=== PATIENT | female | born 1990 | race American Indian/Alaskan Native ===

== ENCOUNTER 2021-12-04 22:13 | Emergency (ER) | payer OTHER ==
[2021-12-04 23:27] VITALS: BP 154/95
[2021-12-05] MEDS ORDERED: ACETAMINOPHEN 500 MG TAB PO ONE (01:21)
[2021-12-05] MEDS ORDERED: IBUPROFEN 600 MG TAB PO ONE (01:21)
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
== END 2021-12-05 06:32 | disposition home or self-care (01) ==
LOC: ED 22:13
DX: S20.219A Contusion of unspecified front wall of thorax, initial encounter (principal); M62.830 Muscle spasm of back; M62.838 Other muscle spasm; E66.01 Morbid (severe) obesity due to excess calories; Z91.013 Allergy to seafood; V89.2XXA Person injured in unspecified motor-vehicle accident, traffic, initial encounter; Y93.89 Activity, other specified; Y92.89 Other specified places as the place of occurrence of the external cause; Y99.8 Other external cause status
CPT/HCPCS: 71046; 72040; 72100; 99283